=== PATIENT | male | born 1950 | race Caucasian/White ===

== ENCOUNTER 2019-08-05 10:19 | Day surgery (SDC) | payer MEDICARE ==
[2019-07-31 14:03] VITALS: BMI 23.8
--- NOTE | 2019-08-05 05:36 | HP ---
HISTORY AND PHYSICAL CHIEF COMPLAINT: Hole in the right eardrum. HISTORY OF PRESENT ILLNESS: This patient is a 69-year-old male who was recently seen in my office for evaluation of intermittent rupture of the right tympanic membrane. The patient did not recall whether or not he had repeated ear infections as a child. His most recent perforation occurred approximately one month ago, but he does state that in the past he has experienced a rupture of the eardrum with drainage, most recently this occurred in 2014. In 2015, he saw Dr. Ley and also another Ear, Nose, and Throat specialist who felt that the perforation would close on its own and therefore did not perform any procedures. At the time that the patient was seen in my office, clinical examination of the patient's right ear revealed approximately a 15% central perforation of the right tympanic membrane. The patient was offered the option of either a formal tympanoplasty or insertion of a Kartush patch. The patient elected to undergo insertion of a right Kartush patch to a perforation of the right tympanic membrane under IV sedation with MAC. PAST MEDICAL HISTORY: Past medical history reveals the patient has allergies to IBUPROFEN and WELLBUTRIN. Current medications include atorvastatin. Previous surgeries include colonoscopy and a thyroidectomy. REVIEW OF SYSTEMS: Review of systems is positive with respect to the metabolic endocrine system which is positive for hypercholesterolemia. The musculoskeletal system is also positive for osteoarthritis. The remainder of review of systems is unremarkable. PHYSICAL EXAMINATION: This patient is a 69-year-old male who is alert and cooperative. HEENT EXAMINATION: Patient is normocephalic. Tympanic membrane on the left is unremarkable. Examination of the right ear reveals that there is a central perforation encompassing approximately 15% of the right tympanic membrane. The middle ear space is dry, free of any fluid or infection or cholesteatoma. Pupils equal, round, react to light and accommodation. Extraocular movements within normal limits. Intranasal examination reveals moderate to severe septal deviation with compensatory hypertrophy of the inferior turbinates and a moderate amount of mucus on the mucous membranes and draining down the posterior pharynx. Examination of oropharynx, cranial nerves 2 through 12 and the remainder of the head and neck exam are within normal limits. CHEST/CARDIOVASCULAR: Both lung fowler are clear to percussion and auscultation. The patient is in regular sinus rhythm. S1, S2 are present without any murmurs, S3s or S4s. Peripheral pulses are bilaterally symmetrical. ABDOMEN: There is no evidence any masses, megaly or tenderness. The abdomen is soft. Skin is unremarkable. Musculoskeletal and neurological are within normal limits. RECTAL EXAM: The rectal exam is deferred at this time because the patient has this done on a regular basis at his family physician's office. The remainder of physical exam is essentially unremarkable. IMPRESSION: Perforation of the right tympanic membrane. PLAN: The patient is scheduled to undergo insertion of a Kartush patch to a right tympanic membrane perforation under IV sedation with MAC in the a.m. ATTENTION RNS: I have not ordered any pre-surgical prophylactic antibiotics for this patient. If the pharmacy department sends any pre-surgical prophylactic antibiotics to the pre-surgical area for this patient, that order should be cancelled and the medication should be returned to the pharmacy department. Also, please make sure that the patient's account is credited appropriately. I have discussed the risks, benefits and alternative therapies for the above-mentioned procedure and for both sedation/analgesia as well as necessary blood product administration, if indicated, as they pertain to this patient. The patient has indicated his or her understanding and acceptance of the risks and procedures discussed. MMODL / IJN: [id number] /
[~2019-08-05 10:19] MED LIST: DEXAMETHASONE SOD PHOSPHATE 10 MG/ML 1 ML VIAL IV ONE; LACTATED RINGERS 1,000 ML IV SCH; LIDOCAINE 1% 20 ML VIAL (10MG/ML) FOR IV START INTRADERMA PRN; MIDAZOLAM 2 MG/2 ML VIAL IV PRN; Pre Op ABX Message 1 EACH MISC MISCELLANE ONE; fentaNYL (PF) 50 MCG/ML 2 ML AMP IV PRN
[2019-08-05 10:39] VITALS: RESP 16; TEMP 97.8
[2019-08-05] MEDS ORDERED: fentaNYL (PF) 50 MCG/ML 2 ML AMP ONE (11:50)
[2019-08-05] MEDS ORDERED: PROPOFOL 10 MG/ML 20 ML VIAL IV ONE (11:50)
[2019-08-05] MEDS ORDERED: LIDOCAINE 1% INJ 10MG/ML (20 ML MDV) ONE (11:50)
[2019-08-05] MEDS ORDERED: MIDAZOLAM 2 MG/2 ML VIAL ONE (11:50)
[2019-08-05] MEDS ORDERED: OFLOXACIN 0.3% OTIC DROPS 5 ML BTL RIGHT EAR ONE (12:02)
[2019-08-05 12:48] VITALS: BP 118/72; PULSE 69
--- NOTE | 2019-08-05 18:30 | OP ---
OPERATIVE REPORT DATE OF SURGERY: 08/05/2019 PREOPERATIVE DIAGNOSIS: Central perforation of the right tympanic membrane. POSTOPERATIVE DIAGNOSIS: Central perforation of the right tympanic membrane. ANESTHESIA: IV sedation with MAC. Operative. PROCEDURE: Insertion of a 5 mm Kartush patch to a perforation of the right tympanic membrane. OPERATING SURGEON: Dr. Simms. COMPLICATIONS: None. ESTIMATED BLOOD LOSS: Estimated blood loss 0. OPERATIVE PROCEDURE: The patient was placed on operating table in supine position. After uneventful induction and mask inhalation anesthesia, satisfactory general anesthesia was obtained. Next the patient's right ear was draped in usual customary fashion. Next, using a #3 aural speculum and Zeiss operating microscope and under magnified visualization, the right external auditory canal was cleansed of all wax and debris. Next, initially a 3 mm Kartush patch was attempted to be placed into the perforation. However, it was found that it was too small. It was subsequently decided that a 5 mm patch would be most appropriate and this was grasped with a pair of alligator forceps in the usual fashion and was carefully placed into the perforation with the lower leaf of the patch being inserted first and care being taken to make sure that it was well seated both within the middle space and also within the external auditory canal. All edges of the patch were found to be seated well and at this point, the procedure was terminated. There were no intraoperative complications. The patient tolerated the procedure well and was returned to the recovery room in satisfactory condition. MMODL / IJN: [id number] /
== END 2019-08-05 13:12 | disposition home or self-care (01) ==
LOC: OR 10:19
PROVIDERS: ATTEND Otolaryngology
DX: H72.01 Central perforation of tympanic membrane, right ear (principal); E89.0 Postprocedural hypothyroidism; E78.00 Pure hypercholesterolemia, unspecified; M19.90 Unspecified osteoarthritis, unspecified site; Z88.6 Allergy status to analgesic agent; Z88.8 Allergy status to other drugs, medicaments and biological substances; Z79.899 Other long term (current) drug therapy; J34.2 Deviated nasal septum; J34.3 Hypertrophy of nasal turbinates; E78.5 Hyperlipidemia, unspecified; Z98.42 Cataract extraction status, left eye; Z98.41 Cataract extraction status, right eye
CPT/HCPCS: 69610; J2250; J1100; J2001; J3010; J2704

== ENCOUNTER 2019-09-16 08:11 | Day surgery (SDC) | payer MEDICARE ==
[2019-09-13 12:00] VITALS: BMI 22.1
[~2019-09-16 08:11] MED LIST changes: -DEXAMETHASONE SOD PHOSPHATE 10 MG/ML 1 ML VIAL IV ONE; -LIDOCAINE 1% 20 ML VIAL (10MG/ML) FOR IV START INTRADERMA PRN; -MIDAZOLAM 2 MG/2 ML VIAL IV PRN; -Pre Op ABX Message 1 EACH MISC MISCELLANE ONE; -fentaNYL (PF) 50 MCG/ML 2 ML AMP IV PRN
[2019-09-16 08:45] VITALS: TEMP 97.7
[2019-09-16] MEDS ORDERED: PROPOFOL 10 MG/ML 20 ML VIAL IV ONE (08:56)
[2019-09-16] MEDS ORDERED: LIDOCAINE 1% INJ 10MG/ML (20 ML MDV) ONE (08:56)
--- NOTE | 2019-09-16 09:07 | P.GSHP ---
History of Present Illness H&P Date: 09/16/19 Chief Complaint: History of colon polyps 69-year-old male with recent history of multiple colon polyps. Patient was found in July 2016 to have a large sessile polyp in the transverse colon. This was tattooed. This was later removed using EMR technique. Patient under went resection of that polyp. He has had other polyps most of which appear to be hyperplastic in nature. Patient doing well at this time. Advise to have short-term follow-up colonoscopy given his history of multiple polyps. Last colonoscopy January 2018. Past Medical History Past Medical History: Asthma, GERD/Reflux, Hyperlipidemia, Osteoarthritis (OA) Additional Past Medical History / Comment(s): abdominal aortic aneurysm. hx colon polyps History of Any Multi-Drug Resistant Organisms: None Reported Additional Past Surgical History / Comment(s): thyroid surgery for nodule. repair of ruptured rt ear drum Past Anesthesia/Blood Transfusion Reactions: No Reported Reaction Smoking Status: Former smoker - Past Family History Mother Family Medical History: Coronary Artery Disease (CAD) Father Additional Family Medical History / Comment(s): from ruptured AAA Brother(s) Additional Family Medical History / Comment(s): from ruptured AAA Medications and Allergies Home Medications Medication Instructions Recorded Confirmed Type Albuterol Sulfate [Proair Hfa] 1 - 2 puff INHALATION Q6HR PRN 07/31/19 09/16/19 History Atorvastatin [Lipitor] 40 mg PO HS 07/31/19 09/16/19 History Cholecalciferol (Vitamin D3) 2,000 unit PO DAILY 07/31/19 09/13/19 History [Vitamin D3] Cinnamon Bark [Cinnamon] 1,000 mg PO DAILY 07/31/19 09/13/19 History Cyanocobalamin (Vitamin B-12) 2,500 mcg PO DAILY 07/31/19 09/13/19 History [Vitamin B-12] Glucosamine/Chondr Coe A Sod [Osteo 1 each PO BID 07/31/19 09/13/19 History Bi-Flex Caplet] Multivitamins, Thera [Multivitamin 1 tab PO DAILY 07/31/19 09/13/19 History (formulary)] [place]-3 Fatty Acids/Fish Oil [Fish 1 each PO DAILY 07/31/19 09/13/19 History Oil 1,000 mg Softgel] Ubidecarenone [Co Q-10] 100 mg PO DAILY 07/31/19 09/13/19 History Allergies Allergy/AdvReac Type Severity Reaction Status Date / Time bupropion [From Wellbutrin] Allergy Swelling Verified 09/16/19 08:46 Surgical - Exam Vital Signs Temp Pulse Resp BP Pulse Ox 97.7 F 81 16 124/80 94 L 09/16/19 08:40 09/16/19 08:40 09/16/19 08:40 09/16/19 08:40 09/16/19 08:40 Physical exam: General: Well-developed, well-nourished HEENT: Normocephalic, sclerae nonicteric Abdomen: Nontender, nondistended Extremities: No edema Neuro: Alert and oriented Assessment and Plan (1) History of colon polyps Narrative/Plan: Will proceed with colonoscopy. Current Visit: Yes Status: Acute Code(s): Z86.010 - PERSONAL HISTORY OF COLONIC POLYPS SNOMED Code(s): 852378072
--- NOTE | 2019-09-16 09:22 | P.PCN ---
Date of Procedure: 09/16/19 Procedure(s) Performed: PREOPERATIVE DIAGNOSIS: History of multiple colon polyps POSTOPERATIVE DIAGNOSIS: Rectal Polyp 2 PROCEDURE: Colonoscopy with snare polypectomy ANESTHESIA: MAC SURGEON: [place] Beckman M.D. SPECIMENS: Polyps ENDOSCOPIC PROCEDURE: The patient was placed on the endoscopy table in the left decubitus position. The Olympus colonoscope was inserted into the anus and passed under direct visualization to the base of the cecum. The appendiceal orifice was visualized. From that point the scope was slowly withdrawn inspecting all surfaces carefully. There were no neoplastic inflammatory or polypoid lesions throughout the cecum, ascending, transverse, descending, and sigmoid colon. In the rectum there were 2 polyps one proximal and one distal. Both removed using the snare with cautery technique. These were sent together. There was no visible diverticulosis. Digital rectal examination was normal. The patient was taken to the recovery room in stable condition per anesthesia guidelines. RECOMMENDATIONS: Await biopsy results. Tentatively plan follow-up colonoscopy 3 years.
[2019-09-16 09:48] VITALS: BP 125/79; PULSE 62; RESP 17
== END 2019-09-16 10:13 | disposition home or self-care (01) ==
LOC: ORWHC2ENDO 08:11
PROVIDERS: ATTEND Surgery
DX: Z12.11 Encounter for screening for malignant neoplasm of colon (principal); D12.8 Benign neoplasm of rectum; K62.1 Rectal polyp; Z86.010 Personal history of colon polyps; J45.909 Unspecified asthma, uncomplicated; K21.9 Gastro-esophageal reflux disease without esophagitis; Z87.891 Personal history of nicotine dependence; E78.5 Hyperlipidemia, unspecified; M19.90 Unspecified osteoarthritis, unspecified site; I71.4 Abdominal aortic aneurysm, without rupture; Z82.49 Family history of ischemic heart disease and other diseases of the circulatory system; Z84.89 Family history of other specified conditions; Z79.899 Other long term (current) drug therapy; Z88.8 Allergy status to other drugs, medicaments and biological substances
CPT/HCPCS: 88305; 45385; J2001; J2704

== ENCOUNTER → 2020-05-21 | Outpatient (CLI) | payer MEDICARE ==
[2020-05-21 09:15] LABS: African American GFR (CKD) >90 (>60 ml/min/1.73 sqM); Blood Urea Nitrogen 13 mg/dL (9-20); Non-African American GFR(CKD) >90 (>60 ml/min/1.73 sqM)
--- NOTE | 2020-05-21 10:33 | CT ---
EXAMINATION TYPE: CT angio abdomen DATE OF EXAM: 05/21/2020 COMPARISON: None HISTORY: Follow up abnormal US at doctors office. Abdominal aortic aneurysm CT DLP: 555.2 mGycm CONTRAST: CTA thoracic and abdominal aorta with 3-D reconstruction is performed and without and with IV Contras t, patient injected with 100 mL of Isovue 370. Contrast CTA of the abdominal aorta was performed from the lung bases through the base of the pelvis. 3-D reconstruction imaging obtained at a separate workstation. CONTRAST CT ABDOMEN AND PELVIS ABDOMINAL AORTA: Atheromatous and ectatic change of the abdominal aorta measuring up to 2.9 cm AP dim ension. Mild mural thrombus. Atheromatous change of the iliac vessels which are patent. SMA, renal ar teries and celiac axis are patent as well. LIVER/GB- No significant abnormality is seen. PANCREAS- No significant abnormality is seen. SPLEEN- No significant abnormality is seen. ADRENALS- No significant abnormality is seen. KIDNEYS/BLADDER-simple cyst left kidney measures 2.6 cm. BOWEL- No Significant abnormality GENITAL ORGANS: No gross abnormality seen. LYMPH NODES- No greater than 1cm abdominal or pelvic lymph nodes areappreciated. OSSEOUS STRUCTURES- No significant abnormality is seen. ERMHH-kiq-aufauwacen inguinal hernias noted. IMPRESSION- Atheromatous and ectatic change of the abdominal aorta without evidence for aneurysm.
== END | disposition home or self-care (01) ==
LOC: RADCTMAIN 07:28
PROVIDERS: ATTEND Family Medicine
DX: I77.811 Abdominal aortic ectasia (principal); I70.0 Atherosclerosis of aorta
CPT/HCPCS: 82565; 84520; 74175; 36415; Q9967

== ENCOUNTER → 2021-08-10 | Outpatient (CLI) | payer MEDICARE ==
[2021-08-10 09:55] LABS: Basophils # (A) 0.1 k/uL (0-0.2); Basophils % (A) 1 %; Eosinophils # (A) 0.1 k/uL (0-0.7); Eosinophils % (A) 3 %; HGB 15.2 gm/dL (13.0-17.5); Lymphocytes # (A) 1.7 k/uL (1.0-4.8); Lymphocytes % (A) 34 %; MCH 32.9 pg (25.0-35.0); MCHC 33.7 g/dL (31.0-37.0); MCV 97.6 fL (80.0-100.0); Mean Platelet Volume 8.1; Monocytes # (A) 0.3 k/uL (0-1.0); Monocytes % (A) 6 %; Neutrophils # (A) 2.7 k/uL (1.3-7.7); Neutrophils % (A) 54 %; Platelet Count 126 k/uL (150-450); RBC 4.61 m/uL (4.30-5.90); RDW 11.9 % (11.5-15.5)
== END | disposition home or self-care (01) ==
LOC: LABPAT 08:45
PROVIDERS: ATTEND Surgery
DX: Z01.812 Encounter for preprocedural laboratory examination (principal); K43.2 Incisional hernia without obstruction or gangrene; K42.9 Umbilical hernia without obstruction or gangrene
CPT/HCPCS: 36415; 85025; 93005

== ENCOUNTER 2021-08-16 11:19 | Day surgery (SDC) | payer MEDICARE ==
[2021-08-12 15:32] VITALS: BMI 23.6
[~2021-08-16 11:19] MED LIST changes: +ACETAMINOPHEN TAB 500 MG TAB PO PRN; +DEXAMETHASONE SOD PHOSPHATE 4 MG/ML 1 ML VIAL IV ONE; +HEPARIN SODIUM,PORCINE/PF 5,000 UNIT/0.5 ML SYRINGE SQ PRN; +LIDOCAINE 1% (10MG/ML) FOR IV START INTRADERMA PRN; +ONDANSETRON 4 MG/2 ML VIAL IVP ONE; +ONDANSETRON 4 MG/2 ML VIAL IVP PRN
--- NOTE | 2021-08-16 11:59 | P.GSHP ---
History of Present Illness H&P Date: 08/16/21 Chief Complaint: Umbilical, bilateral inguinal hernias 71-year-old male here today for elective repair bilateral inguinal hernia and umbilical hernia. Patient having discomfort at the right inguinal hernia site. No nausea or vomiting. No change in bowel habits. No prior repairs. Refer to recent H&P. Past Medical History Past Medical History: Asthma, GERD/Reflux, Hyperlipidemia, Osteoarthritis (OA) Additional Past Medical History / Comment(s): abdominal aortic aneurysm. hx colon polyps. inguinal/umbilical hernias History of Any Multi-Drug Resistant Organisms: None Reported Additional Past Surgical History / Comment(s): thyroid surgery for nodule. repair of ruptured rt ear drum x2 Past Anesthesia/Blood Transfusion Reactions: No Reported Reaction Past Psychological History: No Psychological Hx Reported Smoking Status: Former smoker Past Alcohol Use History: Occasional Additional Past Alcohol Use History / Comment(s): smoked 35 years / ppd quit 2007 Past Drug Use History: None Reported - Past Family History Mother Family Medical History: Coronary Artery Disease (CAD) Father Additional Family Medical History / Comment(s): from ruptured AAA Brother(s) Additional Family Medical History / Comment(s): from ruptured AAA Medications and Allergies Home Medications Medication Instructions Recorded Confirmed Type Albuterol Sulfate [Proair Hfa] 1 - 2 puff INHALATION Q6HR PRN 07/31/19 08/12/21 History Atorvastatin [Lipitor] 40 mg PO HS 07/31/19 08/12/21 History Cholecalciferol (Vitamin D3) 2,000 unit PO DAILY 07/31/19 08/12/21 History [Vitamin D3] Cinnamon Bark [Cinnamon] 1,000 mg PO DAILY 07/31/19 08/12/21 History Cyanocobalamin (Vitamin B-12) 2,500 mcg PO DAILY 07/31/19 08/12/21 History [Vitamin B-12] Glucosamine/Chondr Coe A Sod [Osteo 1 each PO BID 07/31/19 08/12/21 History Bi-Flex Caplet] Multivitamins, Thera [Multivitamin 1 tab PO DAILY 07/31/19 08/12/21 History (formulary)] [place]-3 Fatty Acids/Fish Oil [Fish 1 each PO DAILY 07/31/19 08/12/21 History Oil 1,000 mg Softgel] Ubidecarenone [Co Q-10] 100 mg PO DAILY 07/31/19 08/12/21 History Ascorbic Acid/Elderberry Fruit 1 tab PO DAILY 08/12/21 08/12/21 History [Elderberry-Vit C 50-100 mg Chw] Allergies Allergy/AdvReac Type Severity Reaction Status Date / Time bupropion [From Wellbutrin] Allergy Swelling Verified 08/12/21 15:20 Surgical - Exam Vital Signs Temp Pulse Resp BP Pulse Ox 97.9 F 69 20 122/74 97 08/16/21 11:43 08/16/21 11:43 08/16/21 11:43 08/16/21 11:43 08/16/21 11:43 Physical exam: General: Well-developed, well-nourished HEENT: Normocephalic, sclerae nonicteric Abdomen: Nontender, nondistended, diastases recti, small reducible umbilical hernia, bilateral inguinal hernia right greater than left Extremities: No edema Neuro: Alert and oriented Assessment and Plan (1) Bilateral inguinal hernia Narrative/Plan: Will proceed with laparoscopic da Margot assisted repair bilateral inguinal hernia with mesh, possible open, open repair umbilical hernia with possible mesh. Risks of bleeding, infection, recurrence, bladder and bowel injury, numbness, nerve injury, conversion to an open procedure were discussed with the patient. The patient understands and wishes to proceed. Current Visit: Yes Status: Acute Code(s): K40.20 - BI INGUINAL HERNIA, W/O OBST OR GANGRENE, NOT SPCF RECUR SNOMED Code(s): 10530310 (2) Umbilical hernia Current Visit: Yes Status: Acute Code(s): K42.9 - UMBILICAL HERNIA WITHOUT OBSTRUCTION OR GANGRENE SNOMED Code(s): 449791966
[2021-08-16] MEDS ORDERED: LIDOCAINE 2% (PF) 20 MG/ML 5 ML VIAL ONE (12:02)
[2021-08-16 12:04] LABS: Basophils % (A) 1 %; Eosinophils # (A) 0.2 k/uL (0-0.7); Eosinophils % (A) 3 %; HCT 46.1 % (39.0-53.0); HGB 16.3 gm/dL (13.0-17.5); Lymphocytes # (A) 1.8 k/uL (1.0-4.8); Lymphocytes % (A) 36 %; MCH 33.5 pg (25.0-35.0); MCHC 35.3 g/dL (31.0-37.0); Monocytes # (A) 0.3 k/uL (0-1.0); Monocytes % (A) 6 %; Neutrophils # (A) 2.6 k/uL (1.3-7.7); Neutrophils % (A) 51 %; Platelet Count 140 k/uL (150-450); RBC 4.85 m/uL (4.30-5.90); RDW 12.5 % (11.5-15.5)
[2021-08-16] MEDS ORDERED: MIDAZOLAM 2 MG/2 ML VIAL IV ONE (12:20)
[2021-08-16] MEDS ORDERED: NEOSTIGMINE 1 MG/ML 10 ML VIAL ONE (13:06)
[2021-08-16] MEDS ORDERED: SUCCINYLCHOLINE CHLORIDE 100 MG/5 ML SYR IV ONE (13:06)
[2021-08-16] MEDS ORDERED: PROPOFOL 10 MG/ML 20 ML VIAL IV ONE (13:06)
[2021-08-16] MEDS ORDERED: ROCURONIUM 10 MG/ML (5 ML VIAL) IV ONE (13:06)
[2021-08-16] MEDS ORDERED: GLYCOPYRROLATE 0.2 MG/ML 2 ML VIAL ONE (13:06)
[2021-08-16] MEDS ORDERED: ROPIVACAINE 5 MG/ML 30 ML VIAL ONE (13:06)
[2021-08-16] MEDS ORDERED: LIDOCAINE 1% INJ 10MG/ML (20 ML MDV) ONE (13:06)
[2021-08-16] MEDS ORDERED: SODIUM CHLORIDE 0.9% (PF) 10 ML VIAL ONE (13:06)
[2021-08-16] MEDS ORDERED: fentaNYL (PF) 50 MCG/ML 2 ML AMP ONE (13:06)
[2021-08-16] MEDS ORDERED: BUPIVACAINE (PF) 0.25% 30 ML VIAL SQ ONE ×2 (13:31)
[2021-08-16] MEDS ORDERED: ONDANSETRON 4 MG/2 ML VIAL IVP PRN (15:12)
[2021-08-16] MEDS ORDERED: TAMSULOSIN 0.4 MG CAP.ER.24H PO STA (15:24)
--- NOTE | 2021-08-16 15:24 | P.OP ---
Date of Procedure: 08/16/21 Procedure(s) Performed: PREOPERATIVE DIAGNOSIS: Bilateral inguinal hernia, umbilical hernia POSTOPERATIVE DIAGNOSIS: Bilateral direct inguinal hernia, umbilical hernia PROCEDURE: Laparoscopic repair bilateral inguinal hernia with mesh, umbilical hernia repair SURGEON: Dr. Beckman ANESTHESIA: General OPERATIVE PROCEDURE DETAILS: Patient was placed in the operating table in the supine position. The patient was placed under general anesthesia. The abdomen was prepped and draped in usual sterile fashion. A small curvilinear supraumbilical incision was made. The fascia was dissected so that the umbilical hernia could be evaluated. The hernia sac was excised. The defect at the umbilicus measured 1.5 x 1 cm in size. 2 separate 0 Ethibond [id number] sutures were placed laterally and through the defect a 12 mm trocar was placed. Insufflation took place to 15 mmHg. 2 additional 8 mm trochars were placed in the right upper quadrant and left upper quadrant under visualization. The robotic arms were then brought in and docked into place. The fenestrated bipolar was used in the left arm and the laparoscopic shamika was utilized in the right arm. A 30 8 mm scope was used in the up position. The peritoneal cavity was inspected. The patient had bilateral moderate to large sized direct inguinal hernias present. The right side was first addressed. The peritoneum was incised in a horizontal fashion cephalad to the internal inguinal ring. Following that careful dissection of the preperitoneal space took place. This took place using both electrocautery, sharp dissection but primarily blunt dissection. Visualization of the pubic tubercle and Delmar's ligament took place medially. Full dissection took place laterally as well. The direct hernia sac was fully dissected. The left side was then addressed in a similar fashion. Again the direct hernia was fully reduced. Once we had adequate space the extra-large Bard 3-D mid mesh was advanced into the preperitoneal space and flattened out appropriately to cover all potential hernia sites on the right- hand side and a large Bard 3-D mid mesh was advanced into the preperitoneal space and flattened out appropriately. A 20V lock suture was used to sew both portions of mesh to one another and to the pubic tubercle and to the retropubic fascia superior to that in a running fashion. The peritoneal defect was then closed bilaterally using a absorbable 2-0 VLok suture. The hernia sac was incorporated into the peritoneal closure to help prevent future recurrence. The pneumoperitoneum was then evacuated. The fascial defect at the umbilicus was then closed using [id number] 0 Ethibond sutures. No mesh was utilized at the umbilicus. The skin of all 3 sites was closed using a 4-0 Monocryl stitch. Skin glue was then applied. HERNIA CHARACTERISTICS: Length: Umbilical 1 cm Width: Umbilical 1.5 cm Type: Umbilical, bilateral direct inguinal TYPE OF MESH USED: Bard 3-D mid mesh extra-large (5x7") on right large (4x6") on left LOCATION OF MESH: Preperitoneal FIXATION: 20V lock suture anchoring mesh medially DISPOSITION: Stable to recovery room
[2021-08-16] MEDS: HYDROmorphone 0.5 MG/0.5 ML SYRINGE IVP PRN ×2 (15:45→15:50)
[2021-08-16 15:54] VITALS: RESP 16; TEMP 97
[2021-08-16] MEDS ORDERED: LACTATED RINGERS 1,000 ML IV ONE (16:24)
[2021-08-16 17:32] VITALS: BP 142/92; PULSE 81
[2021-08-16] MEDS ORDERED: ACETAMINOPHEN TAB 325 MG TAB PO SCH (18:00)
[2021-08-16] MEDS ORDERED: IBUPROFEN 600 MG TAB PO SCH (21:00)
--- NOTE | 2021-08-17 13:39 | P.ANPRN ---
Procedure Note - Anesthesia - Nerve Block Performed Bilateral Erector Spinae Single Time Out Performed: Yes Date of Procedure: 08/16/21 Procedure Start Time: 12:11 Procedure Stop Time: 12:25 Location of Patient: PreOp Indication: Acute Post-Operative Pain, Requested by Surgeon Sedation Type: Sedate with meaningful contact maintained Preparation: Sterile Prep Position: Prone Needle Types: Pajunk Needle Gauge: 21 Ultrasound used to visualize needle placement: Yes Ultrasound used to observe medication spread: Yes Blood Aspirated: No Pain Paresthesia on Injection Noted: No Resistance on Injection: Normal Image Stored and Saved: Yes Events: Uneventful and Well Tolerated (Ropivacaine 0.5% 15 mL +15 mL of normal saline given bilaterally at L1)
== END 2021-08-16 18:01 | disposition home or self-care (01) ==
LOC: OR 11:19
PROVIDERS: ATTEND Surgery
DX: K40.20 Bilateral inguinal hernia, without obstruction or gangrene, not specified as recurrent (principal); K42.9 Umbilical hernia without obstruction or gangrene; K21.9 Gastro-esophageal reflux disease without esophagitis; E78.5 Hyperlipidemia, unspecified; J45.909 Unspecified asthma, uncomplicated; M19.90 Unspecified osteoarthritis, unspecified site; Z82.49 Family history of ischemic heart disease and other diseases of the circulatory system; Z87.19 Personal history of other diseases of the digestive system; Z87.891 Personal history of nicotine dependence
CPT/HCPCS: 49650; 49652; 64999; 86900; 86901; 85025; 86850; C1781 ×2; J2250; J1100; J2710; J0690; J2405; J2001; J3010; J2795; J0330; J2704; J1170; J1644

== ENCOUNTER → 2021-10-01 | Outpatient (CLI) | payer MEDICARE ==
--- NOTE | 2021-10-01 14:52 | US ---
EXAMINATION TYPE: US duplex aorta DATE OF EXAM: 10/01/2021 COMPARISON: CT 05/31/2020 CLINICAL HISTORY: 71-year-old male I71.4 AAA WITHOUT RUPTURE. Family hx of AAA. No HTN. High choles terol controlled with meds. Patient states having a AAA. TECHNIQUE: Multiple sonographic images of the abdominal aorta are obtained. FINDINGS: EXAM MEASUREMENTS: Abdominal Aorta: Proximal: 2.5 x 2.4 cm Mid: 2.2 x 2.3 cm AAA visualized at distal Aorta measuring 3.4 x 2.7 cm and spanning 4.0 cm. Distal: 1.6 x 1.7 cm Bifurcation: Right- 1.1 x 1.1 cm Left- 1.2 x 1.2 cm IMPRESSION: 1. Fusiform infrarenal AAA. By ultrasound, this is measuring 3.4 cm. Slightly underestimated by ultra sound, approximately 3.[address] 2. The left common iliac artery is also slightly underestimated by ultrasound at 1.2 cm, measuring ec tatic at 1.[address]
== END | disposition home or self-care (01) ==
LOC: RADUSWWP 09:04
PROVIDERS: ATTEND Internal Medicine Geriatric Medicine
DX: I71.4 Abdominal aortic aneurysm, without rupture (principal); Z82.49 Family history of ischemic heart disease and other diseases of the circulatory system
CPT/HCPCS: 93979

== ENCOUNTER → 2022-10-03 | Outpatient (CLI) | payer MEDICARE ==
--- NOTE | 2022-10-03 09:24 | US ---
EXAMINATION TYPE: US duplex aorta DATE OF EXAM: 10/03/2022 COMPARISON: NONE CLINICAL HISTORY: I71.40 Abdominal aortic aneurysm, without rupture. TECHNIQUE: Multiple sonographic images of the abdominal aorta are obtained. FINDINGS: EXAM MEASUREMENTS: Abdominal Aorta: Proximal: 2.3cm Mid: 2.3cm Distal: 3.0 x 3.0 x 3.5cm AAA Bifurcation: Right: 1.5cm Left: 1.1 PROFESSOR OF JOURNALISM NOTES: Aneurysm measurements above. Upper limits of normal right iliac.
== END | disposition home or self-care (01) ==
LOC: RADUSWWP 08:42
PROVIDERS: ATTEND Internal Medicine Geriatric Medicine
DX: I71.40 Abdominal aortic aneurysm, without rupture, unspecified (principal)
CPT/HCPCS: 93979

== ENCOUNTER → 2023-11-01 | Outpatient (CLI) | payer MEDICARE ==
--- NOTE | 2023-11-01 08:09 | US ---
EXAMINATION TYPE: US duplex aorta DATE OF EXAM: 11/01/2023 COMPARISON: 10/03/2022 CLINICAL INDICATION: Male, 73 years old with history of I71.40 ABDOMINAL AORTIC ANEURYSM; distal AAA TECHNIQUE: Multiple sonographic images of the abdominal aorta are obtained. FINDINGS: EXAM MEASUREMENTS: Abdominal Aorta: Proximal: 2.8x2.6 Mid: 2.3x2.4 Distal: 3.0x4.3 Bifurcation: Right Illiac: 1.4x1.2 Left Illiac: 1.3x1.2 SYSTEMS TESTER NOTES: IMPRESSION: Mild aneurysmal dilatation of distal abdominal aorta.
== END | disposition home or self-care (01) ==
LOC: RADUSWWP 07:37
PROVIDERS: ATTEND Internal Medicine Geriatric Medicine
DX: I71.40 Abdominal aortic aneurysm, without rupture, unspecified (principal)
CPT/HCPCS: 93979

== ENCOUNTER 2023-12-19 09:45 | Day surgery (SDC) | payer MEDICARE ==
[2023-12-19] MEDS: LACTATED RINGERS 1,000 ML IV SCH (10:17)
[2023-12-19] MEDS: LIDOCAINE 1% (10MG/ML) FOR IV START INTRADERMA PRN (10:24)
[2023-12-19 10:35] VITALS: TEMP 97.6
[2023-12-19] MEDS ORDERED: LIDOCAINE 1% INJ 10MG/ML (20 ML MDV) ONE (10:38)
[2023-12-19] MEDS ORDERED: PROPOFOL 10 MG/ML 20 ML VIAL IV ONE (10:38)
--- NOTE | 2023-12-19 10:40 | P.GSHP ---
History of Present Illness H&P Date: 12/19/23 Chief Complaint: Cancer screening with history of polyps 73-year-old male here for colonoscopy. Last colonoscopy 4 years ago. Patient with history of colon polyps. No bowel complaints. Past Medical History Past Medical History: Asthma, Hyperlipidemia, Thyroid Disorder, Vascular Disorder Additional Past Medical History / Comment(s): Benign colon polyps, hypotension, abdominal aortic aneurysm, thyroid nodule History of Any Multi-Drug Resistant Organisms: None Reported Past Surgical History: Ear Surgery, Hernia Repair Additional Past Surgical History / Comment(s): thyroid surgery for nodule, colonoscopies, repair of ruptured rt ear drum x2 Past Anesthesia/Blood Transfusion Reactions: No Reported Reaction Smoking Status: Former smoker - Past Family History Mother Family Medical History: Coronary Artery Disease (CAD) Father Family Medical History: Vascular Disorder Additional Family Medical History / Comment(s): from ruptured AAA Brother(s) Family Medical History: Vascular Disorder Additional Family Medical History / Comment(s): from ruptured AAA Medications and Allergies Home Medications Medication Instructions Recorded Confirmed Type Albuterol Sulfate [Proair Hfa] 1 - 2 puff INHALATION Q6HR PRN 07/31/19 12/19/23 History Atorvastatin [Lipitor] 20 mg PO Q48H 07/31/19 12/19/23 History Cinnamon Bark [Cinnamon] 1,000 mg PO QAM 07/31/19 12/19/23 History Glucosamine/Chondr Coe A Sod [Osteo 1 each PO BID 07/31/19 12/19/23 History Bi-Flex Caplet] Multivitamins, Thera [Multivitamin 1 tab PO QAM 07/31/19 12/19/23 History (formulary)] [place]-3 Fatty Acids/Fish Oil [Fish 1 each PO BID 07/31/19 12/19/23 History Oil 1,000 mg Softgel] Ubidecarenone [Co Q-10] 100 mg PO Q48H 07/31/19 12/19/23 History Ascorbic Acid/Elderberry Fruit 1 tab PO QAM 08/12/21 12/19/23 History [Elderberry-Vit C 50-100 mg Chw] Ibuprofen/Diphenhydramine HCl 1 cap PO HS 12/14/23 12/19/23 History [Advil Pm Liqui-Gels] Midodrine [ProAmatine] 5 mg PO BID 12/14/23 12/19/23 History Allergies Allergy/AdvReac Type Severity Reaction Status Date / Time bupropion [From Wellbutrin] Allergy Swelling Verified 12/19/23 10:09 Surgical - Exam Vital Signs Temp Pulse Resp BP Pulse Ox 97.6 F 94 18 139/83 94 L 12/19/23 10:16 12/19/23 10:16 12/19/23 10:16 12/19/23 10:16 12/19/23 10:16 Physical exam: General: Well-developed, well-nourished HEENT: Normocephalic, sclerae nonicteric Abdomen: Nontender, nondistended Extremities: No edema Neuro: Alert and oriented Assessment and Plan (1) History of colon polyps Narrative/Plan: Will proceed with colonoscopy at this time Current Visit: No Status: Acute Code(s): Z86.010 - PERSONAL HISTORY OF COLONIC POLYPS SNOMED Code(s): 222259513
--- NOTE | 2023-12-19 10:59 | P.PCN ---
Date of Procedure: 12/19/23 Procedure(s) Performed: PREOPERATIVE DIAGNOSIS: History of colon polyps, screening POSTOPERATIVE DIAGNOSIS: Cecal polyp PROCEDURE: Colonoscopy with snare polypectomy and clip placement ANESTHESIA: MAC SURGEON: Montana Beckman M.D. SPECIMENS: Cecal polyp ENDOSCOPIC PROCEDURE: The patient was placed on the endoscopy table in the left decubitus position. The Olympus colonoscope was inserted into the anus and passed under direct visualization to the base of the cecum. The appendiceal orifice was visualized. From that point the scope was slowly withdrawn inspecting all surfaces carefully. At the base of the cecum there was a sessile polyp measuring about 8 mm in size. This was removed using a snare with cautery technique in 2 pieces. A clip was deployed to help prevent post polypectomy bleed. No active bleeding was seen. The ascending transverse descending sigmoid and rectum appeared normal. At the hepatic flexure proximal transverse colon region there was evidence of previous tattooing. No polyps were seen there. There was no visible diverticulosis. Digital rectal examination was n ormal. The patient was taken to the recovery room in stable condition per anesthesia guidelines. RECOMMENDATIONS: Await biopsy results. Plan repeat colonoscopy 5 years.
[2023-12-19 11:35] VITALS: BP 114/81; PULSE 89; RESP 16
== END 2023-12-19 11:32 | disposition home or self-care (01) ==
LOC: ORWHC2ENDO 09:45
PROVIDERS: ATTEND Surgery
DX: Z12.11 Encounter for screening for malignant neoplasm of colon (principal); D12.0 Benign neoplasm of cecum; Z86.010 Personal history of colon polyps; E78.5 Hyperlipidemia, unspecified; I71.40 Abdominal aortic aneurysm, without rupture, unspecified; J45.909 Unspecified asthma, uncomplicated; Z87.891 Personal history of nicotine dependence; Z88.8 Allergy status to other drugs, medicaments and biological substances; Z79.899 Other long term (current) drug therapy
CPT/HCPCS: 88305; 45385; J2001; J2704; 45382